=== PATIENT | male | born 1975 | race Caucasian/White ===

== ENCOUNTER 2016-10-03 09:03 | Day surgery (SDC) | payer MEDICARE, OTHER ==
--- NOTE | ~2016-10-03 | OP ---
Record Of Operation [facility] [address] [place]. [address] NAME: JAMEEL PIERRE : 71 STATUS : [facility]#: [id number] AGE: 41 ADM/REG DATE : 10/03/16 MR#: [id number] REPORT SERV DATE: 10/03/16 DICTATED BY: MISBAH MCKEON DATE: 10/03/16 REPORT STATUS : Draft TRANSCRIBED BY: MODL DATE: 10/03/16 DATE OF PROCEDURE: 10/03/2016 PREOPERATIVE DIAGNOSIS: Seizures. POSTOPERATIVE DIAGNOSIS: Seizures. PROCEDURE: Vagal nerve stimulator generator change and reprogramming. SURGEON: Misbah Mckeon M.D. RESIDENT SURGEON: Robert Copeland MD ANESTHESIA: General. ESTIMATED BLOOD LOSS: 2 mL. IV FLUIDS: Approximately 500 mL of crystalloid. SPECIMEN: Old vagal nerve stimulator generator. DRAINS: None. COMPLICATIONS: None. DESCRIPTION OF PROCEDURE: After informed consent was obtained, the patient was taken back to the operative theater, the patient was laid on the operating room table in the supine position. The patient was given adequate analgesia and anesthesia and then successfully endotracheally intubated. The surgery site was then prepped and draped in a standard fashion. A formal time-out was then performed. Appropriate preoperative antibiotics had been administered. All present in the operating room were in agreement and we elected to proceed for procedure. We began by making an incision over his previous scar on the left superolateral portion of his chest. Then, we used a combination of blunt and sharp dissection to dissect out the old vagal nerve stimulator and clearly identify the leads coming out of the vagal nerve stimulator generator. We then used a combination of sharp and electrocautery dissection to increase the size of the pocket for future vagal nerve stimulator which was larger. We then removed the vagal nerve stimulator generator from the leads leaving the leads in place. Passed the vagal nerve stimulator generator off the field. We connected the new one to the leads, then checked the device, the impedance was good. We then reprogrammed this new regular vagal nerve stimulator generator to have an output current of 3.00, signal frequency of 30, pulse with 250, signal on time 30, signal off time 0.8. The magnet output current at 3.25. This was done with the new vagal nerve stimulator generator and placed in the pocket. We examine inside the pocket again. Hemostasis had already been achieved with electrocautery. We then reapproximated the capsule and the subdermal tissue with 3-0 Vicryl interrupted sutures. We then reapproximated the skin edges with a 4-0 Monocryl subcuticular running stitch. The skin was Record Of Operation [address] [address] NAME: JAMEEL PIERRE : 71 STATUS : [facility]#: [id number] AGE: 41 ADM/REG DATE : 10/03/16 MR#: [id number] REPORT SERV DATE: 10/03/16 DICTATED BY: MISBAH MCKEON DATE: 10/03/16 REPORT STATUS : Draft TRANSCRIBED BY: TARAH DATE: 10/03/16 reapproximated well and Dermabond was then placed over the incision. A sterile dressing was then placed on top of that and then sterile drapes were then broken down. The patient was reversed from anesthesia, successfully extubated, the patient was awake. Vital signs are stable. The patient was transferred to the recovery room in stable condition. DICTATED BY: MD GUZMAN Ortega/TARAH Misbah Mckeon M.D. / [id number] CC: Phylicia Reynoso M.D.
[~2016-10-03 09:03] MED LIST: ALEVE220 MG PO; AMOXIL400 MG/5 M PO; DSS PO; HYCET 7.5 MG-3473 ML PO; KEPPRA500 PO; KEPPRA750 MG PO; LEXAPRO10 PO; MULTIPLE VIT PO; NEUR400 PO; PAX20 PO; TEGRETOL PO; TEGXR200 PO; VALIUM PR; VIMPAT100 MG PO; VITAMIN D31000 UNIT PO; ZOFRAN ODT4 MG PO; [UNRECOGNIZED DRUG - CODE] PO
[2016-10-03 09:56] LABS: HEMATOCRIT 32.9 % (40.0-51.0); HEMOGLOBIN 11.6 g/dL (13.6-17.8)
== END 2016-10-03 13:50 | disposition home or self-care (01) ==
LOC: SDC 09:03
PROVIDERS: Specialist
PROC: 0JH60BZ Insertion of Single Array Stimulator Generator into Chest Subcutaneous Tissue and Fascia, Open Approach (ICD-10-PCS; 2016-10-03)
PROC: 4B01XVZ Measurement of Peripheral Nervous Stimulator, External Approach (ICD-10-PCS; 2016-10-03)
PROC: 0JPT0MZ Removal of Stimulator Generator from Trunk Subcutaneous Tissue and Fascia, Open Approach (ICD-10-PCS; principal; 2016-10-03 10:15)
DX: Z45.42 Encounter for adjustment and management of neurostimulator (principal); G40.909 Epilepsy, unspecified, not intractable, without status epilepticus; G47.33 Obstructive sleep apnea (adult) (pediatric); E11.9 Type 2 diabetes mellitus without complications; F41.9 Anxiety disorder, unspecified; F32.9 Major depressive disorder, single episode, unspecified; F90.9 Attention-deficit hyperactivity disorder, unspecified type; Z88.1 Allergy status to other antibiotic agents; Z88.2 Allergy status to sulfonamides; Z88.6 Allergy status to analgesic agent; Z88.8 Allergy status to other drugs, medicaments and biological substances; Z79.899 Other long term (current) drug therapy
CPT/HCPCS: 82962; 85014; 85018; 88300; C1767; J0690; J2405; J2710; J3010